=== PATIENT | male | born 1940 | race Caucasian/White ===

== ENCOUNTER 2017-11-12 02:16 | Inpatient (IN) | payer OTHER, MEDICARE ==
[~2017-11-12] VITALS: Ht 180.3 cm; Wt 88.6 kg
[~2017-11-12 02:16] MED LIST: ASPIRIN EC81 M1 PO; ATORVASTATIN CA40 M1 PO; LISINOPRIL5 M1 PO; MELATONIN3 M4 PO; OMEPRAZOLE40 M1 PO; OXYCODONE-ACET1 EACH PO; SERTRALINE HCL50 MG PO; TAMSULOSIN HCL0.4 M1 PO; VITAMIN D2000 UNI1 PO
--- NOTE | 2017-11-12 13:26 | Operative Report ---
Operative/Inv Procedure Report Surgery Date: 11/12/17 Name of Procedure: Cystoscopy and TURP Pre-Operative Diagnosis: Urinary retention and BPH Post-Operative Diagnosis: Same Estimated Blood Loss: 300 cc Surgeon/Sports Betting Manager: Yfn Hanley MD Anesthesia: general endotracheal tube Drains: 22 Lao three-way hematuria catheter for continuous bladder irrigation Specimens: Prostate chips and urine culture Complications: None Condition: Stable Operative Indication: Urinary retention which did not respond to medical therapy Operative/Procedure Note Note: The patient was taken to the cystoscopy room and identified. As placed in supine position on the cystoscopy table. Timeout was executed appropriately with the patient awake. Gen. anesthesia was induced via an endotracheal tube. He was then placed in dorsal lithotomy position. Bimanual rectal exam revealed a large, nonnodular prostate. He was then prepped and draped in usual fashion for cystoscopy. A surgical pause was executed appropriately. The 22 Lao cystoscope sheath was placed into the bladder under direct vision using the 30 lens. Anterior urethra was normal. Prostatic urethra showed trilobar prostatic hypertrophy and was quite large. Prostatic length was about 5 cm. Upon entering the bladder was noted to be heavily trabeculated. At this point neither ureteral orifice could be visualized. The bladder was left full and the cystoscope removed. We 6 Lao resectoscope sheath was placed in the bladder using obturator. The working element was inserted. The middle lobe of the prostate was resected between the 5:00 and 7:00 positions. Hemostasis was obtained electrocautery area and after resecting the middle lobe both ureteral orifices were visualized and noted to be normal. Next the floor the prostatic urethra was resected between 5 and 7:00 positions. Hemostasis is obtained electrocautery. Next the left lateral lobe of the prostate was resected between 11:00 and 5:00 positions using the bladder neck as the proximal landmark and the verumontanum as a distal landmark. Hemostasis was then electrocautery. At this point resection time was an hour and 10 minutes in the right lobe and not been resected. Therefore was decided to stop at this time. The [employer] evacuator was used to remove all prostate chips from the bladder. Hemostasis is then obtained with electrocautery. Of note he did have a lateral lobe prostate tissue which extended distal to the verumontanum and this tissue was not resected. At this point no arterial bleeding was noted. All chips had been irrigated from the bladder. A 22 Lao three-way hematuria catheter was placed and continuous bladder irrigation was begun. Catheter was placed on traction and the drainage was light pink. Patient tolerated the procedure well and as completion was taken to recovery in stable condition. Findings: Trilobar prostatic hypertrophy with definite bladder outlet obstruction and heavily trabeculated bladder Discharge Disposition: PACU
--- NOTE | 2017-11-12 14:16 | PN- General Surgery ---
Subjective Subjective: POST-OP CHECK IN PACU PT HAS MODERATE PAIN AT THE OPERATIVE SITE. DENIES N/V, WOULD LIKE TO EAT HAS NOT AMBULATED YET DENIES CP/SOB Objective Vital Signs and I&Os GEN- NAD RESP-CLEAR CARDIO-RRR ABD-ND, SOFT,NT. DRESSING IN RLQ CLEAN AND DRY Assessment/Plan Assessment/Plan 77YO M SP RIH REVISION WITH MESH AND TURP POD0 SCHMITT TO STAY IN FOR NOW PAIN MANAGEMENT REGULAR HOME MEDS ADVANCE DIET TOLERATED ENCOURAGE AMBULATION IS DVT PPX- SQ HEPARIN Core Measures Venous Thromboembolism VTE Risk Factors Surgery No Mechanical VTE Prophylaxis d/t N/A MechProphylax Ordered No VTE Pharm Prophylaxis d/t NA PharmProphylax ordered
[2017-11-12 15:00] VITALS: BP 130/74
[2017-11-12 22:05] VITALS: BP 120/70
[2017-11-13 06:58] VITALS: BP 130/80
--- NOTE | 2017-11-13 07:23 | PN- Urology ---
Subjective Subjective: No acute distrss Objective Vital Signs and I&Os Vital Signs Date Time Temp Pulse Resp B/P B/P Pulse O2 O2 Flow FiO2 Mean Ox Delivery Rate 11/13 0658 97.5 64 20 130/80 96 Room Air 11/12 2205 98.7 80 20 120/70 93 11/12 1848 Room Air 11/12 1500 97.6 82 18 130/74 97 Room Air Intake & Output 11/13 0800 11/13 0000 11/12 1600 11/12 0800 11/12 0000 11/11 1600 Intake Total 350 Output Total 2200 Balance -1850 Intake, IV 350 Output, Urine 2200 Patient 195 lb Weight Abd: soft and non tender Genitalia: 3-way fontenot in place. CBI running with clear drainage Extrems: no calf tenderness Today's lab pending Assessment/Plan Assessment/Plan Imp: 1. Stable s/p TURP and RIH repair by general surgery Plan: 1. Will take fontenot off traction and stop CBI. Restart for hematuria 2. Ambulate 3. Hep lock IV Core Measures Venous Thromboembolism VTE Risk Factors Surgery No Mechanical VTE Prophylaxis d/t N/A MechProphylax Ordered No VTE Pharm Prophylaxis d/t NA PharmProphylax ordered
--- NOTE | 2017-11-13 07:55 | PN- General Surgery ---
Subjective Subjective: Minimal complaints of right groin pain, no acute events overnight Objective Vital Signs and I&Os Vital Signs Date Time Temp Pulse Resp B/P B/P Pulse O2 O2 Flow FiO2 Mean Ox Delivery Rate 11/13 0658 97.5 64 20 130/80 96 Room Air 11/12 2205 98.7 80 20 120/70 93 11/12 1848 Room Air 11/12 1500 97.6 82 18 130/74 97 Room Air Intake & Output 11/13 0800 11/13 0000 11/12 1600 11/12 0800 11/12 0000 11/11 1600 Intake Total 900 350 Output Total 2650 2200 Balance -1750 -1850 Intake, IV 400 350 Intake, Oral 500 Output, Urine 2650 2200 Patient 195 lb Weight Physical Exam: Well-developed well-nourished no apparent distress. HEENT: Atraumatic, extraocular motion intact Neck: Supple, no lymphadenopathy Respiratory: No respiratory distress Abdomen: Incision clean dry and intact in the right inguinal region. Minimal tenderness. No swelling Extremities: No edema, no calf pain Neuro: Alert and oriented x3 Psych: Mood affect normal, normal memory normal judgment. Skin: Warm and dry, no rash on exposed skin Assessment/Plan Assessment/Plan Postop day #1 status post right inguinal hernia repair and TURP Dressing change when necessary May shower with dressing in place 10 pound weight restriction until follow-up in the office in approximately 10 days TURP/Sheppard management per urology Core Measures Venous Thromboembolism VTE Risk Factors Surgery No Mechanical VTE Prophylaxis d/t N/A MechProphylax Ordered No VTE Pharm Prophylaxis d/t NA PharmProphylax ordered
--- NOTE | 2017-11-13 07:57 | Patient Discharge Instructions ---
Discharge Instructions General Discharge Information Other wound care: Dressing change with Band-Aids May shower, no bath 10 pound weight lifting restriction until follow-up in approximately 10 days in the office Acute Coronary Syndrome Inclusion Criteria At DC or during hospital stay patient has or had the following: Discharge Core Measures Meds if any: Prescribed or Continued at Discharge Meds if any: NOT Prescribed or Continued at Discharge Congestive Heart Failure Inclusion Criteria At DC or during hospital stay patient has or had the following: Discharge Core Measures Meds if any: Prescribed or Continued at Discharge Meds if any: NOT Prescribed or Continued at Discharge Cerebrovascular accident Inclusion Criteria At DC or during hospital stay patient has or had the following: Discharge Core Measures Meds if any: Prescribed or Continued at Discharge Meds if any: NOT Prescribed or Continued at Discharge Venous thromboembolism Discharge Core Measures - Per Current guidelines, there needs to be overlap - treatment for the first 5 days of Warfarin therapy. - If discharged on Warfarin prior to 5 days of - overlap therapy, the patient will need to be - assessed for post discharge needs including - *Post discharge parental anticoagulation - *Warfarin and/or parental anticoagulation education - *Follow up date to check INR post discharge Meds if any: Prescribed or Continued at Discharge Note: Overlap Therapy is Warfarin and Anticoagulant Meds if any: NOT Prescribed or Continued at Discharge
--- NOTE | 2017-11-13 11:43 | Operative Report ---
Operative/Inv Procedure Report Surgery Date: 11/12/17 Name of Procedure: Recurrent right inguinal hernia repair. Pre-Operative Diagnosis: recurrent right inguinal hernia Post-Operative Diagnosis: same Estimated Blood Loss: less than 50ml Surgeon/Diesel Service Apprentice: Donta Esquivel MD/ALEX Bingham Anesthesia: general endotracheal tube Implants: Parietex progrip Operative Indication: recurrent RIH after laparoscopic repair Operative/Procedure Note Note: Patient was taken to the OR and laid supine. General anesthesia obtained and groin prepped and draped. skin in right groin was prepped and draped. An incision made sharply in transverse plane. Subcutaneous tissues dissected with cautery down through scarpas fascia. self retaining retractor placed. inguinal canal dissected with cautery and infiltrated with local anesthesia. incision along fibers of external oblique made sharply and retractors placed deeper. Cord structures circumferentially dissected and alex drain placed around. Cord structure dissected from sac with cautery. It was difficult due to inflammation from prior repair 4 months ago. There was a resolving hematoma. specimen of it sent for culture. The sac dissected to internal ring and reduced. Tissues then closed over with 2-0 vicryl to keep it out of the way. It was an indirect recurrence. parietex progrip was placed around the cord structures and secured to tissue on pubis and inguinal ligament with 2-0 prolene. Wound irrigated with saline. fascial layers closed with 3-0 vicryl. skin closed with 4-0 vicryl. Sterile dressing applied. Findings: indirect recurrence. CC: Morales MORAN,Elizabeth
[2017-11-13 14:23] VITALS: BP 86/50
[2017-11-13 14:31] LABS: ABSOLUTE BASOPHIL COUNT 0.1 /CUMM (0.0-0.2); ABSOLUTE EOSINOPHIL COUNT 0.1 /CUMM (0.0-0.7); ABSOLUTE GRANULOCYTE CT 11.7 /CUMM (1.4-6.5); ABSOLUTE LYMPH COUNT 2.4 /CUMM (1.2-3.4); ABSOLUTE MONOCYTE COUNT 1.5 /CUMM (0.10-0.60); BASOPHIL % 0.4 % (0.0-2.0); EOSINOPHIL % 0.6 % (0-5); GRANULOCYTE % 74.2 % (42.2-75.2); HEMATOCRIT 40.4 % (42-52); MEAN CORPUSCULAR HGB 29.5 PG (27.0-31.0); MEAN CORPUSCULAR HGB CONC 32.7 G/DL (33.0-37.0); MEAN CORPUSCULAR VOLUME 90.4 FL (80.0-94.0); MEAN PLATELET VOLUME 9.8 FL (7.4-10.4); PLATELET COUNT 238 /CUMM (130-400); RBC DISTRIBUTION WIDTH 14.6 % (11.5-14.5); RED BLOOD CELL CT 4.47 /CUMM (4.70-6.10); WHITE BLOOD CELL COUNT 15.8 /CUMM (4.8-10.8)
[2017-11-13 20:00] VITALS: BP 100/60
[2017-11-13 22:15] VITALS: BP 100/60
[2017-11-14 06:59] VITALS: BP 120/66
--- NOTE | 2017-11-14 07:42 | PN- Urology ---
Subjective Subjective: Feels well. Yesterday had asymptomatic dip in BP to 86 systolic. BP this AM is 120 systolic. On pre op physical BP was 106 systolic Objective Vital Signs and I&Os Vital Signs Date Time Temp Pulse Resp B/P B/P Pulse O2 O2 Flow FiO2 Mean Ox Delivery Rate 11/14 0659 98.5 74 20 120/66 94 Room Air 11/13 2215 97.9 72 18 100/60 98 Room Air 11/13 2000 100/60 11/13 1423 98.1 68 18 86/50 93 11/13 1023 97.5 64 20 130/80 11/13 1023 97.5 64 20 130/80 Intake & Output 11/14 0800 11/14 0000 11/13 1600 11/13 0800 11/13 0000 11/12 1600 Intake Total 200 3075 2040 900 350 Output Total 4500 3100 2650 2200 Balance 200 -1425 -1060 -1750 -1850 Intake, IV 575 300 400 350 Intake, Oral 200 240 500 Intake, Other 2500 1500 Output, Urine 4500 3100 2650 2200 Patient 195 lb Weight Back: No CVA tenderness Abd: soft and non tender. R inguinal dressing intact Genitalia: 3 way font[address] in [address]. CBI just clamped. Drainage is clear so far Extrems: no calf tenderness Laboratory Tests 11/13 1223 Chemistry Sodium (137 - 145 mmol/L) 138 Potassium (3.5 - 5.1 mmol/L) 4.1 Chloride (98 - 107 mmol/L) 103 Carbon Dioxide (22 - 30 mmol/L) 22 Anion Gap (5 - 16) 13 BUN (9 - 20 mg/dL) 20 Creatinine (0.7 - 1.2 mg/dL) 0.9 Estimated GFR (>60 ml/min) > 60 BUN/Creatinine Ratio (7 - 25 %) 22.2 Hematology CBC w Diff NO MAN DIFF REQ WBC (4.8 - 10.8 /CUMM) 15.8 H RBC (4.70 - 6.10 /CUMM) 4.47 L Hgb (14.0 - 18.0 G/DL) 13.2 L Hct (42 - 52 %) 40.4 L MCV (80.0 - 94.0 FL) 90.4 MCH (27.0 - 31.0 PG) 29.5 MCHC (33.0 - 37.0 G/DL) 32.7 L RDW (11.5 - 14.5 %) 14.6 H Plt Count (130 - 400 /CUMM) 238 MPV (7.4 - 10.4 FL) 9.8 Gran % (42.2 - 75.2 %) 74.2 Lymphocytes % (20.5 - 51.1 %) 15.4 L Monocytes % (1.7 - 9.3 %) 9.4 H Eosinophils % (0 - 5 %) 0.6 Basophils % (0.0 - 2.0 %) 0.4 Absolute Granulocytes (1.4 - 6.5 /CUMM) 11.7 H Absolute Lymphocytes (1.2 - 3.4 /CUMM) 2.4 Absolute Monocytes (0.10 - 0.60 /CUMM) 1.5 H Absolute Eosinophils (0.0 - 0.7 /CUMM) 0.1 Absolute Basophils (0.0 - 0.2 /CUMM) 0.1 Urine culture from OR is negative to date Assessment/Plan Assessment/Plan Imp: 1. s/p TURP with some post op hematuria Plan: 1. Attempt to stop CBI today 2. Continue fontenot 3. Ambulate 4. continue po abx 5. Hopeful for voiding trial tomorrow Core Measures Venous Thromboembolism VTE Risk Factors Surgery No Mechanical VTE Prophylaxis d/t N/A MechProphylax Ordered No VTE Pharm Prophylaxis d/t NA PharmProphylax ordered
--- NOTE | 2017-11-14 12:36 | PN- General Surgery ---
Surgical Brief Attending Note Brief Attending Note: Patient doing well. Discharge per Urology. Follow up in 2 weeks as arranged
[2017-11-14 17:00] VITALS: BP 118/70
[2017-11-14 22:36] VITALS: BP 110/60
[2017-11-15 06:46] VITALS: BP 136/82
--- NOTE | 2017-11-15 07:29 | PN- Urology ---
Subjective Subjective: Had some dizziness yesterday. Feels well today Objective Vital Signs and I&Os Vital Signs Date Time Temp Pulse Resp B/P B/P Pulse O2 O2 Flow FiO2 Mean Ox Delivery Rate 11/15 0646 97.5 68 18 136/82 94 Room Air 11/14 2236 98.3 74 20 110/60 95 Room Air 11/14 1700 80 20 118/70 97 Room Air 11/14 09 98.5 74 20 120/66 11/14 09 98.5 74 20 120/66 Intake & Output 11/15 0811/15 0000 11/14 1600 11/14 0811/14 0000 11/13 1600 Intake Total 400 2240 200 3075 2040 Output Total 800 4500 4500 3100 Balance -400 -2260 200 -1425 -1060 Intake, IV 575 300 Intake, Oral 400 1040 200 240 Intake, Other 1200 2500 1500 Output, Urine 800 4500 4500 3100 Abd: soft and non tender Genitalia: fontenot in place. CBI is off. Urine is light pink Extrems: venodynes in place. No calf tenderness Assessment/Plan Assessment/Plan Imp: 1. s/p TURP for urinary retention Plan: 1. Remove fontenot today for void trial 2. Check pvr by bladder scan 3. Ambulate Core Measures Venous Thromboembolism VTE Risk Factors Surgery No Mechanical VTE Prophylaxis d/t N/A MechProphylax Ordered No VTE Pharm Prophylaxis d/t NA PharmProphylax ordered
--- NOTE | 2017-11-15 12:23 | PN- General Surgery ---
Surgical Brief Attending Note Brief Attending Note: INCISION CLEAN. F/U TWO WEEKS
[2017-11-15 15:17] VITALS: BP 118/74
--- NOTE | 2017-11-15 16:47 | PN- Urology ---
Surgical Brief Attending Note Brief Attending Note: Patient voiding well. Urine pink and without clots. PVR by bladder scan 70 cc Plan: Discharge home today
--- NOTE | 2017-11-15 17:03 | Discharge Summary ---
Visit Information Visit Dates Admission Date: 11/12/17 Discharge Date: 11/15/2017 Hospital Course Course Attending Physician: Yfn Hanley MD Primary Care Physician: Elizabeth Nielsen MD [facility] Course: Underwent TURP for urinary retention and voided spontaneously after fontenot removed on POD#3 Complications: None Allergies: Coded Allergies: ciprofloxacin (From CIPRO) (RASH 09/10/17) clopidogrel (From PLAVIX) (RASH 08/14/17) PLAVIX (RASH) PER ANTIBIOTIC ORDER SHEET OF 08/14/17 ([facility]) Significant Procedures: TURP Disposition Summary Disposition Principal Diagnosis: Urinary retention Additional Diagnosis: BPH Discharge Disposition: home or self care Discharge Instructions General Discharge Information Code Status: Full Code Patient's Diet: Patient to resume all pre op meds as per discharge instructions Patient's Activity: No strenuous activity Follow-Up Instructions/Appts: Patient instructed to call office and arrane post op visit for 2 weeks Medications at Discharge Discharge Medications: Stop taking the following medications: Aspirin (Ecotrin*) 81 MG TABLET.DR ORAL DAILY Continue taking these medications: Lisinopril (Lisinopril) 5 MG TABLET 1 Tablet ORAL DAILY Qty = 30 Sertraline HCl (Sertraline HCl) 50 MG TABLET 1 Tablet ORAL DAILY Qty = 30 Tamsulosin HCl (Tamsulosin HCl) 0.4 MG CAP.ER.24H 1 Capsule ORAL DAILY Qty = 30 Atorvastatin Calcium (Atorvastatin Calcium) 40 MG TABLET 1 Tablet ORAL DAILY Qty = 30 Cholecalciferol (Vitamin D3) (Vitamin D) (Unknown Strength) TABLET Unknown Dose ORAL DAILY Melatonin (Melatonin) (Unknown Strength) TABLET Unknown Dose ORAL Every night Copies To: Elizabeth Nielsen MD
== END 2017-11-15 19:00 | DRG 713 ==
LOC: STS 02:16 → PACUH 11:20 → 2NA 11:20 → ENRESERV 13:47 → ENTRNSPT 14:22 → EDTRNSPTSTS 14:33 → 2NA 14:46 → CMPTRNSPT 15:17 → ENTRNSPT 11-15 18:57 → 2NA 11-15 19:00 → CMPTRNSPT 11-15 19:28
PROVIDERS: Urology
PROC: 0VB08ZZ Excision of Prostate, Via Natural or Artificial Opening Endoscopic (ICD-10-PCS; principal; 2017-11-12)
PROC: 0YQ50ZZ Repair Right Inguinal Region, Open Approach (ICD-10-PCS; 2017-11-12)
DX: N40.1 Benign prostatic hyperplasia with lower urinary tract symptoms (principal); N13.8 Other obstructive and reflux uropathy; K40.90 Unilateral inguinal hernia, without obstruction or gangrene, not specified as recurrent; Z88.8 Allergy status to other drugs, medicaments and biological substances; Z79.82 Long term (current) use of aspirin; Z87.891 Personal history of nicotine dependence; E03.9 Hypothyroidism, unspecified; E55.9 Vitamin D deficiency, unspecified; E78.5 Hyperlipidemia, unspecified; F39 Unspecified mood [affective] disorder; H91.90 Unspecified hearing loss, unspecified ear; I10 Essential (primary) hypertension; I25.10 Atherosclerotic heart disease of native coronary artery without angina pectoris; K21.9 Gastro-esophageal reflux disease without esophagitis; R35.0 Frequency of micturition; R39.14 Feeling of incomplete bladder emptying; M81.0 Age-related osteoporosis without current pathological fracture; R97.20 Elevated prostate specific antigen [PSA]; I71.4 Abdominal aortic aneurysm, without rupture; Z98.61 Coronary angioplasty status
CPT/HCPCS: 2NASP; 87070; 87075; 36592; 82436; 87086; C1781; J0690; J1644; J7040; J7042